=== PATIENT | female | born 1940 | race Caucasian/White ===

== ENCOUNTER 2020-12-14 17:24 | Emergency (ER) | payer MEDICARE, BC ==
[~2020-12-14] VITALS: Ht 172.7 cm; Wt 102.3 kg
[2020-12-14] MEDS ORDERED: CASIRIVIMAB/IMDEVIMAB inject. 10 ML in normal saline 100ml IV soln 100 ML IV ONE (18:25)
[2020-12-14 20:16] VITALS: BP 117/78
== END 2020-12-14 20:00 | disposition home or self-care (01) ==
LOC: ER 17:24
DX: U07.1 COVID-19 (principal); R05 Cough; I48.91 Unspecified atrial fibrillation; I10 Essential (primary) hypertension; J45.909 Unspecified asthma, uncomplicated; Z88.0 Allergy status to penicillin; Z88.1 Allergy status to other antibiotic agents
CPT/HCPCS: 71045; 99283; M0243; Q0244

== ENCOUNTER 2021-04-05 18:38 | Emergency (ER) | payer MEDICARE, BC ==
[~2021-04-05] VITALS: Ht 172.7 cm; Wt 102.3 kg
[~2021-04-05 18:38] MED LIST: ALBU6.7H9 INH; ASPI-1071 PO; CHOL500050 PO; LEVO100T PO; METO-384 PO; ROSU5TAB12 PO; TRIA1TAB3 PO
[2021-04-05 18:56] VITALS: BP 131/84
[2021-04-05] MEDS ORDERED: DEXA6TAB6 PO (19:25)
[2021-04-05] MEDS ORDERED: dexamethasone 4mg tablet PO ONE (19:25)
[2021-04-05] MEDS ORDERED: DEXAMETHASONE 6 MG TABLET PO ONE (19:30)
== END 2021-04-05 20:19 | disposition home or self-care (01) ==
LOC: ER 18:39
DX: R05.9 Cough, unspecified (principal); Z20.822 Contact with and (suspected) exposure to COVID-19; I48.91 Unspecified atrial fibrillation; I10 Essential (primary) hypertension; J45.909 Unspecified asthma, uncomplicated; Z88.0 Allergy status to penicillin; Z88.1 Allergy status to other antibiotic agents; Z79.82 Long term (current) use of aspirin; Z79.899 Other long term (current) drug therapy
CPT/HCPCS: 99283; J8540

== ENCOUNTER 2021-07-26 08:16 | Emergency (ER) | payer MEDICARE, BC ==
[~2021-07-26] VITALS: Ht 172.7 cm; Wt 104.5 kg
[~2021-07-26 08:16] MED LIST changes: +DEXA6TAB6 PO
[2021-07-26 08:26] VITALS: BP 153/87
[2021-07-26 09:38] LABS: CLARITY,URINE CLOUDY (Clear); COLOR,URINE RED (Yellow); GLUCOSE, URINE NEGATIVE (Neg); KETONES,URINE NEGATIVE (Neg); LEUKOCYTE ESTERASE ,URINE NEGATIVE (Neg); NITRITES, URINE NEGATIVE (Neg); OCCULT BLOOD,URINE LARGE (Neg); PROTEIN,URINE TRACE mg/dl (Neg); UROBILINOGEN,URINE 0.2 E.U/dL (0.2-1.0)
[2021-07-26 09:42] LABS: UA COLLECTION TYPE CLN CATCH MIDSTREAM
[2021-07-26 09:44] LABS: BACTERIA,URINE FEW /HPF (Neg); MUCUS STRANDS FEW /LPF (Neg); RBC,URINE TNTC /HPF (0-2); SQUAMOUS EPITHELIAL CELL,UR FEW /LPF (FEW); WBC,URINE 0-4 /HPF (0-4)
--- NOTE | 2021-07-26 10:39 | NUR ---
us at bedside
--- NOTE | 2021-07-26 11:50 | NUR ---
pt states she has no discomfort nor pain before, durring or after urination.
[2021-07-26] MEDS ORDERED: SULF1TAB49 PO (15:49)
[2021-07-26 15:58] LABS: BASOPHILS % (AUTO) 0.1 % (0-1); EOSINOPHILS # (AUTO) 0.1 X10'3 (0-0.9); EOSINOPHILS % (AUTO) 2.1 % (0-6); HEMATOCRIT 45.1 % (35.0-45.0); HEMOGLOBIN 15.5 g/dl (12.0-16.0); LYMPHOCYTES # (AUTO) 1.6 X10'3 (1.1-4.8); LYMPHOCYTES % (AUTO) 28.1 % (21-51); MEAN CORPUSCULAR HEMOGLOBIN 29.2 PG (27.0-31.0); MEAN CORPUSCULAR HGB CONC 34.3 g/dL (33.0-36.5); MEAN PLATELET VOLUME 6.8 FL (7.4-10.4); MONOCYTES # (AUTO) 0.2 X10'3 (0-0.9); MONOCYTES % (AUTO) 3.4 % (2-12); NEUTROPHILS # (AUTO) 3.7 X10'3 (1.8-7.7); NEUTROPHILS % (AUTO) 66.3 % (42-75); PLATELET COUNT 264 X10'3 (140-440); RED BLOOD COUNT 5.31 X10'6 (4.20-5.60); RED CELL DISTRIBUTION WIDTH 14.9 % (11.5-14.5); WHITE BLOOD COUNT 5.6 X10'3 (4.5-11.0)
[2021-07-26 16:11] LABS: ALANINE AMINOTRANSFERASE 18 U/L (12-78); ALBUMIN 3.7 G/DL (3.4-5.0); ALBUMIN/GLOBULIN RATIO 1.1 (1.1-1.5); ALKALINE PHOSPHATASE 73 IU/L (46-116); ANION GAP 8 (8-16); ASPARTATE AMINO TRANSFERASE 16 U/L (10-37); BILIRUBIN,TOTAL 0.6 MG/DL (0.1-1.0); BLOOD UREA NITROGEN 15 MG/DL (7-18); BUN/CREATININE RATIO 14.7 (6.6-38.0); CHLORIDE 105 MMOL/L (99-107); CREATININE 1.02 MG/DL (0.40-0.90); GLUCOSE 142 MG/DL (70-104); POTASSIUM 3.5 MMOL/L (3.5-5.1); SODIUM 141 MMOL/L (135-145); TOTAL CARBON DIOXIDE 28.2 MMOL/L (24-32); eGFR 52 ML/MIN
== END 2021-07-26 16:03 | disposition home or self-care (01) ==
LOC: ER 08:17
DX: R31.0 Gross hematuria (principal); N20.0 Calculus of kidney; N28.89 Other specified disorders of kidney and ureter; I11.9 Hypertensive heart disease without heart failure; J45.909 Unspecified asthma, uncomplicated; Z88.0 Allergy status to penicillin; Z88.1 Allergy status to other antibiotic agents; Z79.899 Other long term (current) drug therapy
CPT/HCPCS: 36415; 74176; 76770; 80053; 81001; 85025; 99284

== ENCOUNTER 2021-12-07 08:38 | Emergency (ER) | payer MEDICARE, BC ==
[~2021-12-07] VITALS: Ht 172.7 cm; Wt 99.0 kg
[~2021-12-07 08:38] MED LIST changes: +ALBU6.7H14 INH; -ALBU6.7H9 INH
[2021-12-07] MEDS ORDERED: normal saline 1000ML IV soln IVB ONE (09:20)
[2021-12-07] MEDS ORDERED: ondansetron/PF 4mg/2ml inj IV ONE (09:20)
[2021-12-07] MEDS ORDERED: ketorolac trometh. 30mg/ml inj. IV ONE (09:20)
[2021-12-07 09:57] LABS: CLARITY,URINE SLIGHTLY CLOUDY (Clear); COLOR,URINE YELLOW (Yellow); GLUCOSE, URINE NEGATIVE (Neg); KETONES,URINE NEGATIVE (Neg); LEUKOCYTE ESTERASE ,URINE NEGATIVE (Neg); NITRITES, URINE NEGATIVE (Neg); OCCULT BLOOD,URINE TRACE-INTACT (Neg); PROTEIN,URINE NEGATIVE (Neg); UROBILINOGEN,URINE 0.2 E.U/dL (0.2-1.0)
[2021-12-07 10:02] LABS: AMORPHOUS PHOSPHATES 1+; BACTERIA,URINE NONE SEEN /HPF (Neg); MUCUS STRANDS FEW /LPF (Neg); RBC,URINE 0-2 /HPF (0-2); SQUAMOUS EPITHELIAL CELL,UR FEW /LPF (FEW); UA COLLECTION TYPE CLN CATCH MIDSTREAM; WBC,URINE NONE SEEN /HPF (0-4)
[2021-12-07 10:11] LABS: BASOPHILS % (AUTO) 0.1 % (0-1); EOSINOPHILS % (AUTO) 0.1 % (0-6); HEMATOCRIT 45.4 % (35.0-45.0); HEMOGLOBIN 15.7 g/dl (12.0-16.0); LYMPHOCYTES # (AUTO) 1.6 X10'3 (1.1-4.8); LYMPHOCYTES % (AUTO) 12.9 % (21-51); MEAN CORPUSCULAR HEMOGLOBIN 29.6 PG (27.0-31.0); MEAN CORPUSCULAR HGB CONC 34.5 g/dL (33.0-36.5); MEAN CORPUSCULAR VOLUME 85.8 FL (78-98); MEAN PLATELET VOLUME 6.6 FL (7.4-10.4); MONOCYTES # (AUTO) 0.7 X10'3 (0-0.9); MONOCYTES % (AUTO) 5.7 % (2-12); NEUTROPHILS # (AUTO) 10.2 X10'3 (1.8-7.7); NEUTROPHILS % (AUTO) 81.2 % (42-75); PLATELET COUNT 274 X10'3 (140-440); RED CELL DISTRIBUTION WIDTH 14.3 % (11.5-14.5); WHITE BLOOD COUNT 12.5 X10'3 (4.5-11.0)
[2021-12-07 10:27] LABS: ALANINE AMINOTRANSFERASE 18 U/L (12-78); ALBUMIN 3.6 G/DL (3.4-5.0); ALBUMIN/GLOBULIN RATIO 1.1 (1.1-1.5); ALKALINE PHOSPHATASE 78 IU/L (46-116); ANION GAP 7 (8-16); ASPARTATE AMINO TRANSFERASE 13 U/L (10-37); BILIRUBIN,TOTAL 0.5 MG/DL (0.1-1.0); BLOOD UREA NITROGEN 24 MG/DL (7-18); BUN/CREATININE RATIO 14.9 (6.6-38.0); CALCIUM 11.1 MG/DL (8.5-10.1); CHLORIDE 101 MMOL/L (99-107); CREATININE 1.61 MG/DL (0.40-0.90); GLUCOSE 130 MG/DL (70-104); POTASSIUM 4.1 MMOL/L (3.5-5.1); SODIUM 135 MMOL/L (135-145); TOTAL CARBON DIOXIDE 27.5 MMOL/L (24-32); eGFR 31 ML/MIN
[2021-12-07] MEDS ORDERED: FLO0.4C PO (11:37)
[2021-12-07] MEDS ORDERED: OXYC-150 PO (11:37)
[2021-12-07 12:03] VITALS: BP 150/84
== END 2021-12-07 12:08 | disposition home or self-care (01) ==
LOC: ER 08:38
DX: N20.0 Calculus of kidney (principal); N13.30 Unspecified hydronephrosis; R10.84 Generalized abdominal pain; R11.2 Nausea with vomiting, unspecified; I12.9 Hypertensive chronic kidney disease with stage 1 through stage 4 chronic kidney disease, or unspecified chronic kidney disease; N18.9 Chronic kidney disease, unspecified; I48.91 Unspecified atrial fibrillation; J45.909 Unspecified asthma, uncomplicated; Z98.890 Other specified postprocedural states; Z88.0 Allergy status to penicillin; Z88.1 Allergy status to other antibiotic agents; Z79.82 Long term (current) use of aspirin; Z79.899 Other long term (current) drug therapy
CPT/HCPCS: 36415; 74176; 80053; 81001; 85025; 96361; 96374; 96375; 99284; J1885; J2405; J7030

== ENCOUNTER 2022-06-02 07:48 | Emergency (ER) | payer MEDICARE, BC ==
[~2022-06-02] VITALS: Ht 172.7 cm; Wt 102.3 kg
[~2022-06-02 07:48] MED LIST changes: +OXYC-150 PO
[2022-06-02 07:56] VITALS: BP 133/81
[2022-06-02] MEDS ORDERED: normal saline 1000ml 1,000 ML IV ONE (08:45)
[2022-06-02] MEDS ORDERED: ondansetron/PF 4mg/2ml inj IM ONE (08:45)
[2022-06-02] MEDS ORDERED: morphine 4 MG/ML inj SYRINge IV ONE (08:45)
[2022-06-02 08:47] LABS: BASOPHILS % (AUTO) 0.1 % (0-1); EOSINOPHILS # (AUTO) 0.1 X10'3 (0-0.9); EOSINOPHILS % (AUTO) 0.6 % (0-6); HEMATOCRIT 45.7 % (35.0-45.0); LYMPHOCYTES # (AUTO) 1.2 X10'3 (1.1-4.8); LYMPHOCYTES % (AUTO) 11.1 % (21-51); MEAN CORPUSCULAR HEMOGLOBIN 28.3 PG (27.0-31.0); MEAN CORPUSCULAR HGB CONC 32.8 g/dL (33.0-36.5); MEAN CORPUSCULAR VOLUME 86.2 FL (78-98); MEAN PLATELET VOLUME 6.9 FL (7.4-10.4); MONOCYTES # (AUTO) 0.6 X10'3 (0-0.9); MONOCYTES % (AUTO) 5.3 % (2-12); NEUTROPHILS # (AUTO) 9.2 X10'3 (1.8-7.7); NEUTROPHILS % (AUTO) 82.9 % (42-75); PLATELET COUNT 293 X10'3 (140-440); RED CELL DISTRIBUTION WIDTH 14.7 % (11.5-14.5); WHITE BLOOD COUNT 11.1 X10'3 (4.5-11.0)
[2022-06-02 09:00] LABS: ALANINE AMINOTRANSFERASE 15 U/L (12-78); ALBUMIN 3.7 G/DL (3.4-5.0); ALBUMIN/GLOBULIN RATIO 1.2 (1.1-1.5); ALKALINE PHOSPHATASE 71 IU/L (46-116); ANION GAP 8 (8-16); ASPARTATE AMINO TRANSFERASE 14 U/L (10-37); BILIRUBIN,TOTAL 0.5 MG/DL (0.1-1.0); BLOOD UREA NITROGEN 26 MG/DL (7-18); BUN/CREATININE RATIO 21.7 (6.6-38.0); CALCIUM 9.6 MG/DL (8.5-10.1); CHLORIDE 105 MMOL/L (99-107); GLUCOSE 146 MG/DL (70-104); LIPASE 115 U/L (73-393); SODIUM 139 MMOL/L (135-145); TOTAL PROTEIN 6.9 G/DL (6.4-8.2); eGFR 43 ML/MIN
[2022-06-02 09:54] LABS: CLARITY,URINE SLIGHTLY CLOUDY (Clear); COLOR,URINE YELLOW (Yellow); GLUCOSE, URINE NEGATIVE (Neg); KETONES,URINE NEGATIVE (Neg); LEUKOCYTE ESTERASE ,URINE NEGATIVE (Neg); NITRITES, URINE NEGATIVE (Neg); OCCULT BLOOD,URINE SMALL (Neg); PH,URINE 6.5 (4.8-8.0); PROTEIN,URINE NEGATIVE (Neg); UROBILINOGEN,URINE 0.2 E.U/dL (0.2-1.0)
[2022-06-02 10:02] LABS: UA COLLECTION TYPE CLN CATCH MIDSTREAM
[2022-06-02] MEDS ORDERED: CefTRIAXone 2gm/D5W 50ml BAG 50 ML IV ONE (10:10)
[2022-06-02] MEDS ORDERED: ketorolac trometh. 30mg/ml inj. IV ONE (10:15)
[2022-06-02 10:25] LABS: WBC,URINE 0-4 /HPF (0-4)
[2022-06-02 10:26] LABS: SQUAMOUS EPITHELIAL CELL,UR FEW /LPF (FEW)
[2022-06-02 10:27] LABS: BACTERIA,URINE NONE SEEN /HPF (Neg)
[2022-06-02] MEDS ORDERED: CEPH500C2 PO (10:48)
[2022-06-02] MEDS ORDERED: TRAM1TAB7 PO (10:48)
[2022-06-02] MEDS ORDERED: ONDA8TAB13 PO (10:48)
== END 2022-06-02 11:11 | disposition home or self-care (01) ==
LOC: ER 07:49
DX: N20.1 Calculus of ureter (principal); N12 Tubulo-interstitial nephritis, not specified as acute or chronic; J45.909 Unspecified asthma, uncomplicated; I10 Essential (primary) hypertension; Z87.442 Personal history of urinary calculi; I11.9 Hypertensive heart disease without heart failure; Z88.0 Allergy status to penicillin; Z88.1 Allergy status to other antibiotic agents; Z79.82 Long term (current) use of aspirin; Z79.899 Other long term (current) drug therapy
CPT/HCPCS: 36415; 74176; 80053; 81001; 83690; 85025; 96361; 96365; 96372; 96375; 99285; J0696; J1885; J2270; J2405; J7030

== ENCOUNTER 2023-02-22 09:20 | Inpatient (IN) | payer MEDICARE, BC ==
[~2023-02-22] VITALS: Ht 172.7 cm; Wt 98.8 kg
[2023-02-22] VITALS (17 sets, daily range): BP systolic 107–150; BP diastolic 61–88; PULSE 63–95; RESP 7–19; TEMP 97.8–99.5; O2SAT 93–100
[~2023-02-22 09:20] MED LIST changes: +ONDA8TAB13 PO
[2023-02-22] MEDS ORDERED: morphine 2 MG/ML inj. syringe IV PRN ×2 (09:40→17:20)
[2023-02-22] MEDS ORDERED: ondansetron/PF 4mg/2ml inj IV ONE (09:40)
[2023-02-22] MEDS ORDERED: normal saline 1000ML IV soln IVB ONE (09:40)
[2023-02-22 10:30] LABS: BILIRUBIN,URINE NEGATIVE (Neg); CLARITY,URINE SLIGHTLY CLOUDY (Clear); COLOR,URINE YELLOW (Yellow); GLUCOSE, URINE NEGATIVE (Neg); KETONES,URINE NEGATIVE (Neg); LEUKOCYTE ESTERASE ,URINE NEGATIVE (Neg); NITRITES, URINE NEGATIVE (Neg); OCCULT BLOOD,URINE MODERATE (Neg); PROTEIN,URINE NEGATIVE (Neg); UROBILINOGEN,URINE 0.2 E.U/dL (0.2-1.0)
[2023-02-22 10:35] LABS: UA COLLECTION TYPE CLN CATCH MIDSTREAM
[2023-02-22 10:37] LABS: BACTERIA,URINE FEW /HPF (Neg); FINE GRANULAR CAST 0-3 /LPF (NEGATIVE); HYALINE CASTS 0-3 /LPF (NEGATIVE); MUCUS STRANDS FEW /LPF (Neg); SQUAMOUS EPITHELIAL CELL,UR FEW /LPF (FEW); TRANSITIONAL EPI CELLS,URINE FEW /HPF; WBC,URINE 0-4 /HPF (0-4)
[2023-02-22 11:00] LABS: BASOPHILS % (AUTO) 0.2 % (0-1); EOSINOPHILS # (AUTO) 0.1 X10'3 (0-0.9); EOSINOPHILS % (AUTO) 1.6 % (0-6); HEMATOCRIT 43.5 % (35.0-45.0); HEMOGLOBIN 14.7 g/dl (12.0-16.0); LYMPHOCYTES # (AUTO) 2.4 X10'3 (1.1-4.8); LYMPHOCYTES % (AUTO) 26.6 % (21-51); MEAN CORPUSCULAR HEMOGLOBIN 29.1 PG (27.0-31.0); MEAN CORPUSCULAR HGB CONC 33.7 g/dL (33.0-36.5); MEAN CORPUSCULAR VOLUME 86.3 FL (78-98); MEAN PLATELET VOLUME 7.3 FL (7.4-10.4); MONOCYTES # (AUTO) 0.5 X10'3 (0-0.9); NEUTROPHILS % (AUTO) 66.6 % (42-75); PLATELET COUNT 317 X10'3 (140-440); RED BLOOD COUNT 5.05 X10'6 (4.20-5.60); RED CELL DISTRIBUTION WIDTH 14.7 % (11.5-14.5)
[2023-02-22 11:22] LABS: ALANINE AMINOTRANSFERASE 17 U/L (12-78); ALBUMIN 3.2 G/DL (3.4-5.0); ALBUMIN/GLOBULIN RATIO 0.8 (1.1-1.5); ALKALINE PHOSPHATASE 69 IU/L (46-116); ANION GAP 6 (8-16); ASPARTATE AMINO TRANSFERASE 14 U/L (10-37); BILIRUBIN,TOTAL 0.7 MG/DL (0.1-1.0); BLOOD UREA NITROGEN 17 MG/DL (7-18); C-REACTIVE PROTEIN 8.13 MG/DL (0.0-0.5); CALCIUM 9.5 MG/DL (8.5-10.1); CHLORIDE 103 MMOL/L (99-107); CREATININE 1.06 MG/DL (0.40-0.90); GLUCOSE 115 MG/DL (70-104); LIPASE 35 U/L (16-77); POTASSIUM 3.7 MMOL/L (3.5-5.1); SODIUM 138 MMOL/L (135-145); TOTAL CARBON DIOXIDE 28.9 MMOL/L (24-32); TOTAL PROTEIN 7.4 G/DL (6.4-8.2); eCRCL 42 ML/MIN; eGFR 50 ML/MIN
[2023-02-22] MEDS ORDERED: MEROPENEM 1GM/NS 100ML IVPB 100 ML IV ONE (11:55)
[2023-02-22] MEDS ORDERED: levoFLOXACIN-Levaquin 750MG/D5 150 ML IV STA (12:31)
[2023-02-22] MEDS ORDERED: potassium Cl 40MEQ/1/2NS 520ml 520 ML IV PRN (12:35)
[2023-02-22] MEDS ORDERED: potassium Cl 20 mEq SR tablet PO PRN ×2 (12:35)
[2023-02-22] MEDS ORDERED: magnesium 2GM in 50ml NS 50 ML IV PRN (12:35)
[2023-02-22] MEDS ORDERED: magnesium 4gm in 100ml NS 100 ML IV PRN (12:35)
[2023-02-22] MEDS ORDERED: ondansetron/PF 4mg/2ml inj IV PRN ×2 (12:35→17:20)
[2023-02-22] MEDS: normal saline 1000ml 1,000 ML IV SCH (13:36)
[2023-02-22 14:55] LABS: APTT 33 SECONDS (22-32)
[2023-02-22] MEDS ORDERED: INDOCYANINE GREEN 25 MG/10 ML VIAL IV ONE (15:35)
[2023-02-22] MEDS ORDERED: hydrALAZINE 20mg/ml inj. IV PRN (15:55)
[2023-02-22] MEDS: metroNIDAZOLE-Flagyl 750mg/NS 150 ML IV SCH (16:37)
[2023-02-22] MEDS ORDERED: BUPIVAcaine 2.5mg/ml inj 50ml vial (contains preservative) ONE (16:55)
[2023-02-22] MEDS ORDERED: meperidine/PF 25mg/ml syringe IV PRN ×3 (17:20)
[2023-02-22] MEDS ORDERED: proCHLORperazine 10 MG/2 ml inj IV PRN (17:20)
[2023-02-22] MEDS ORDERED: ringers solution, lacted 1,000 ML IV SCH (17:20)
[2023-02-22] MEDS ORDERED: morphine 4 MG/ML inj SYRINge IV PRN (17:20)
[2023-02-22] MEDS ORDERED: LIDOcaine 2% (20mg/ml) 5ml vial ONE (17:34)
[2023-02-22] MEDS ORDERED: sevoflurane 250ml liquid IH ONE (17:34)
[2023-02-22] MEDS ORDERED: metoprolol tartrate 1mg/ml inj IV ONE (17:34)
[2023-02-22] MEDS ORDERED: propofol inj 20 ML IV ONE (17:41)
[2023-02-22] MEDS ORDERED: fentaNYL/PF 50MCG/1 ML 2ML syringe ONE (17:41)
[2023-02-22] MEDS ORDERED: rocuronium 10mg/ml inj IV ONE (17:52)
[2023-02-22] MEDS ORDERED: dexamethasone sod phosphate 4mg/ml inj. ONE (17:52)
[2023-02-22] MEDS ORDERED: ceFOXitin 1000 MG inj ONE ×2 (18:01)
[2023-02-22] MEDS ORDERED: BUPIVAcaine 0.25% w/Epi /PF 30ml vial IJ ONE (18:20)
[2023-02-22] MEDS ORDERED: BUPIVAcaine 2.5mg/ml inj 50ml vial (contains preservative) SQ ONE (18:20)
[2023-02-22] MEDS ORDERED: acetaminophen 1,000mg/100ml IV 100 ML IV ONE (18:55)
[2023-02-22] MEDS ORDERED: ondansetron/PF 4mg/2ml inj ONE (18:57)
[2023-02-22] MEDS ORDERED: sugammadex 200mg/2ml injection IV ONE (18:59)
[2023-02-22] MEDS ORDERED: naloxone 0.4 mg/ml inj IV PRN (19:25)
[2023-02-22] MEDS ORDERED: metoprolol tartrate 50mg tablet PO ONE (19:25)
[2023-02-22] MEDS: K and/or MAG REPLACEMENT MC SCH (20:00)
[2023-02-22] MEDS: docusate sod 100mg capsule PO SCH (21:40)
[2023-02-22] MEDS: enoxaparin 40mg/0.4ml syringe SQ SCH (21:51)
[2023-02-22] MEDS: HYDROcodone/acetaminophen 5mg/325mg tablet PO PRN (22:17)
[2023-02-23] VITALS: BP 153/73; PULSE 69; O2SAT 93
[2023-02-23] MEDS: metroNIDAZOLE-Flagyl 750mg/NS 150 ML IV SCH ×4 (01:39→23:59)
[2023-02-23] MEDS: normal saline 1000ml 1,000 ML IV SCH ×3 (01:41→16:10)
[2023-02-23 02:00] VITALS: BP 139/67; PULSE 73; RESP 15; TEMP 97.8; O2SAT 95
[2023-02-23] MEDS: HYDROcodone/acetaminophen 5mg/325mg tablet PO PRN ×3 (03:47→17:48)
[2023-02-23 06:00] VITALS: BP 140/69; PULSE 65; RESP 15; TEMP 97.6; O2SAT 93
[2023-02-23 06:05] LABS: BASOPHILS % (AUTO) 0.1 % (0-1); EOSINOPHILS % (AUTO) 0 % (0-6); HEMATOCRIT 39.9 % (35.0-45.0); HEMOGLOBIN 13.4 g/dl (12.0-16.0); LYMPHOCYTES # (AUTO) 1.1 X10'3 (1.1-4.8); LYMPHOCYTES % (AUTO) 12.5 % (21-51); MEAN CORPUSCULAR HEMOGLOBIN 28.8 PG (27.0-31.0); MEAN CORPUSCULAR HGB CONC 33.5 g/dL (33.0-36.5); MEAN PLATELET VOLUME 7.5 FL (7.4-10.4); MONOCYTES # (AUTO) 0.2 X10'3 (0-0.9); MONOCYTES % (AUTO) 2.5 % (2-12); NEUTROPHILS # (AUTO) 7.3 X10'3 (1.8-7.7); NEUTROPHILS % (AUTO) 84.9 % (42-75); PLATELET COUNT 290 X10'3 (140-440); RED BLOOD COUNT 4.64 X10'6 (4.20-5.60); RED CELL DISTRIBUTION WIDTH 14.5 % (11.5-14.5); WHITE BLOOD COUNT 8.6 X10'3 (4.5-11.0)
[2023-02-23 06:16] LABS: ALANINE AMINOTRANSFERASE 25 U/L (12-78); ALBUMIN 2.7 G/DL (3.4-5.0); ALBUMIN/GLOBULIN RATIO 0.7 (1.1-1.5); ALKALINE PHOSPHATASE 66 IU/L (46-116); ANION GAP 7 (8-16); ASPARTATE AMINO TRANSFERASE 29 U/L (10-37); BILIRUBIN,TOTAL 0.5 MG/DL (0.1-1.0); BLOOD UREA NITROGEN 14 MG/DL (7-18); BUN/CREATININE RATIO 13.7 (10.0-20.0); CALCIUM 8.4 MG/DL (8.5-10.1); CHLORIDE 104 MMOL/L (99-107); CREATININE 1.02 MG/DL (0.40-0.90); GLUCOSE 159 MG/DL (70-104); MAGNESIUM 1.7 MG/DL (1.5-2.4); POTASSIUM 3.9 MMOL/L (3.5-5.1); SODIUM 139 MMOL/L (135-145); TOTAL CARBON DIOXIDE 28.4 MMOL/L (24-32); TOTAL PROTEIN 6.4 G/DL (6.4-8.2); eCRCL 44 ML/MIN; eGFR 52 ML/MIN
[2023-02-23] MEDS: K and/or MAG REPLACEMENT MC SCH ×2 (07:23→20:00)
[2023-02-23] MEDS: docusate sod 100mg capsule PO SCH ×2 (07:32→19:58)
[2023-02-23] MEDS: acetaminophen 325mg tablet PO PRN (07:32)
[2023-02-23] MEDS ORDERED: levoFLOXACIN-Levaquin 750MG/D5 150 ML IV SCH (08:00)
[2023-02-23 10:00] VITALS: BP 121/75; PULSE 77; RESP 14; TEMP 96.9; O2SAT 98
[2023-02-23 18:00] VITALS: BP 153/82; PULSE 77; RESP 18; TEMP 97.3; O2SAT 97
[2023-02-23] MEDS ORDERED: oxyCODONE/APAP 10/325mg tablet PO PRN (18:05)
[2023-02-23] MEDS ORDERED: albuterol 2.5 MG/3 ML nebule NEB PRN (18:05)
[2023-02-23] MEDS: enoxaparin 40mg/0.4ml syringe SQ SCH (19:58)
[2023-02-23] MEDS ORDERED: metoprolol succinate 25mg (24-HOUR) SR. Tablet PO SCH (21:00)
[2023-02-23] MEDS: ondansetron 4mg rapidly disintigrating tab PO SCH (21:37)
[2023-02-23 22:00] VITALS: BP 160/84; PULSE 85; RESP 15; TEMP 98.1; O2SAT 96
[2023-02-24] MEDS: ondansetron 4mg rapidly disintigrating tab PO SCH ×3 (02:00→14:00)
[2023-02-24] MEDS: normal saline 1000ml 1,000 ML IV SCH (04:35)
[2023-02-24 06:00] VITALS: BP 149/74; PULSE 76; RESP 15; TEMP 97.7; O2SAT 96
[2023-02-24 06:36] LABS: BASOPHILS % (AUTO) 0.2 % (0-1); EOSINOPHILS % (AUTO) 0.5 % (0-6); HEMATOCRIT 38.8 % (35.0-45.0); LYMPHOCYTES # (AUTO) 1.6 X10'3 (1.1-4.8); LYMPHOCYTES % (AUTO) 19.4 % (21-51); MEAN CORPUSCULAR HGB CONC 33.5 g/dL (33.0-36.5); MEAN CORPUSCULAR VOLUME 86.6 FL (78-98); MEAN PLATELET VOLUME 6.9 FL (7.4-10.4); MONOCYTES # (AUTO) 0.6 X10'3 (0-0.9); MONOCYTES % (AUTO) 7.3 % (2-12); NEUTROPHILS # (AUTO) 6.1 X10'3 (1.8-7.7); NEUTROPHILS % (AUTO) 72.6 % (42-75); PLATELET COUNT 278 X10'3 (140-440); RED BLOOD COUNT 4.48 X10'6 (4.20-5.60); RED CELL DISTRIBUTION WIDTH 14.4 % (11.5-14.5); WHITE BLOOD COUNT 8.5 X10'3 (4.5-11.0)
[2023-02-24 06:55] LABS: ALANINE AMINOTRANSFERASE 22 U/L (12-78); ALBUMIN 2.6 G/DL (3.4-5.0); ALBUMIN/GLOBULIN RATIO 0.8 (1.1-1.5); ALKALINE PHOSPHATASE 59 IU/L (46-116); ANION GAP 8 (8-16); ASPARTATE AMINO TRANSFERASE 21 U/L (10-37); BILIRUBIN,TOTAL 0.3 MG/DL (0.1-1.0); BLOOD UREA NITROGEN 10 MG/DL (7-18); BUN/CREATININE RATIO 10.8 (10.0-20.0); CALCIUM 7.9 MG/DL (8.5-10.1); CHLORIDE 108 MMOL/L (99-107); CREATININE 0.93 MG/DL (0.40-0.90); GLUCOSE 107 MG/DL (70-104); MAGNESIUM 1.7 MG/DL (1.5-2.4); POTASSIUM 3.6 MMOL/L (3.5-5.1); SODIUM 143 MMOL/L (135-145); THYROID STIMULATING HORMONE 6.09 ulU/ml (0.34-4.50); TOTAL CARBON DIOXIDE 26.9 MMOL/L (24-32); eCRCL 48 ML/MIN; eGFR 58 ML/MIN
[2023-02-24] MEDS ORDERED: levoTHYROXINE 100mcg tablet PO SCH (07:00)
[2023-02-24] MEDS: docusate sod 100mg capsule PO SCH (07:20)
[2023-02-24] MEDS: metroNIDAZOLE-Flagyl 750mg/NS 150 ML IV SCH (07:24)
[2023-02-24] MEDS ORDERED: aspirin 81mg, enteric-coated 1 TAB TABLET.DR PO SCH (08:00)
[2023-02-24] MEDS: K and/or MAG REPLACEMENT MC SCH (08:00)
[2023-02-24] MEDS ORDERED: cholecalciferol (vitamin D3) 1,000 unit (25mcg) tablet PO SCH (08:00)
[2023-02-24] MEDS ORDERED: triamterene/HCTZ 37.5/25mg tablet PO SCH (08:00)
[2023-02-24] MEDS ORDERED: DEXAMETHASONE 6 MG TABLET PO SCH (08:00)
[2023-02-24] MEDS ORDERED: ROSUVASTATIN CALCIUM 5 MG TABLET PO SCH (08:00)
[2023-02-24] MEDS: acetaminophen 325mg tablet PO PRN (09:16)
[2023-02-24 10:00] VITALS: BP 146/79; PULSE 77; RESP 17; TEMP 97.5; O2SAT 95
[2023-02-24] MEDS: HYDROcodone/acetaminophen 5mg/325mg tablet PO PRN (11:21)
[2023-02-24] MEDS ORDERED: furosemide 40mg/4ml inj IV ONE (11:25)
[2023-02-25] MEDS ORDERED: levoFLOXACIN-Levaquin 750MG/D5 150 ML IV SCH (08:00)
== END 2023-02-24 14:40 | disposition home or self-care (01) | DRG 418 ==
LOC: ER 09:20 → ED HOLD 12:43 → EDBEDREQ 14:37 → ORTHO 4S 15:15
PROVIDERS: ADMIT Family Medicine; ATTEND Family Medicine
PROC: 0FN44ZZ Release Gallbladder, Percutaneous Endoscopic Approach (ICD-10-PCS; 2023-02-22)
PROC: 8E0W4CZ Robotic Assisted Procedure of Trunk Region, Percutaneous Endoscopic Approach (ICD-10-PCS; 2023-02-22)
PROC: 0FT44ZZ Resection of Gallbladder, Percutaneous Endoscopic Approach (ICD-10-PCS; principal; 2023-02-22 17:34)
DX: K80.12 Calculus of gallbladder with acute and chronic cholecystitis without obstruction (principal); N17.9 Acute kidney failure, unspecified; E03.9 Hypothyroidism, unspecified; E78.5 Hyperlipidemia, unspecified; I10 Essential (primary) hypertension; J45.909 Unspecified asthma, uncomplicated; K66.0 Peritoneal adhesions (postprocedural) (postinfection); I48.0 Paroxysmal atrial fibrillation; Z66 Do not resuscitate; Z82.49 Family history of ischemic heart disease and other diseases of the circulatory system; Z88.0 Allergy status to penicillin; Z79.899 Other long term (current) drug therapy; Z88.1 Allergy status to other antibiotic agents; Z80.3 Family history of malignant neoplasm of breast; Z80.42 Family history of malignant neoplasm of prostate; Z82.0 Family history of epilepsy and other diseases of the nervous system; Z87.442 Personal history of urinary calculi; Z90.710 Acquired absence of both cervix and uterus; E86.0 Dehydration
CPT/HCPCS: 36415; 71045; 74176; 80053; 81001; 83605; 83690; 83735; 84145; 84443; 85025; 85610; 85730; 86140; 86885; 86900; 86901; 87040; 87081; 88304; 93005; 99285; A4215; A4618; A6212; A6449; A7000; G0378; J0131; J0694; J1100; J1650; J1940; J1956; J2175; J2405; J2704; J3010; J3490; J7030; J7120; S0020

== ENCOUNTER 2023-10-30 20:11 | Emergency (ER) | payer MEDICARE, BC ==
[~2023-10-30] VITALS: Ht 172.7 cm; Wt 105.0 kg
[~2023-10-30 20:11] MED LIST changes: +ONDA-245 PO; -ONDA8TAB13 PO; -ROSU5TAB12 PO; +ROSU5TAB43 PO
[2023-10-30 20:45] LABS: BASOPHILS % (AUTO) 0.1 % (0-1); EOSINOPHILS # (AUTO) 0.1 X10'3 (0-0.9); HEMATOCRIT 46.5 % (35.0-45.0); HEMOGLOBIN 15.8 g/dl (12.0-16.0); LYMPHOCYTES # (AUTO) 2.5 X10'3 (1.1-4.8); LYMPHOCYTES % (AUTO) 23.6 % (21-51); MEAN CORPUSCULAR HEMOGLOBIN 29.2 PG (27.0-31.0); MEAN CORPUSCULAR VOLUME 85.8 FL (78-98); MEAN PLATELET VOLUME 6.9 FL (7.4-10.4); MONOCYTES # (AUTO) 0.7 X10'3 (0-0.9); MONOCYTES % (AUTO) 6.8 % (2-12); NEUTROPHILS # (AUTO) 7.3 X10'3 (1.8-7.7); NEUTROPHILS % (AUTO) 68.5 % (42-75); PLATELET COUNT 295 X10'3 (140-440); RED BLOOD COUNT 5.42 X10'6 (4.20-5.60); RED CELL DISTRIBUTION WIDTH 15.7 % (11.5-14.5); WHITE BLOOD COUNT 10.7 X10'3 (4.5-11.0)
[2023-10-30 21:01] LABS: APTT 28 SECONDS (22-32); PROTHROMBIN TIME 10.9 SECONDS (9.0-12.0)
[2023-10-30 21:04] LABS: ALANINE AMINOTRANSFERASE 14 U/L (12-78); ALBUMIN 3.6 G/DL (3.4-5.0); ALKALINE PHOSPHATASE 75 IU/L (46-116); ANION GAP 6 (8-16); ASPARTATE AMINO TRANSFERASE 11 U/L (10-37); BILIRUBIN,TOTAL 0.4 MG/DL (0.1-1.0); BLOOD UREA NITROGEN 22 MG/DL (7-18); BUN/CREATININE RATIO 15.5 (10.0-20.0); CALCIUM 9.5 MG/DL (8.5-10.1); CHLORIDE 104 MMOL/L (99-107); CREATININE 1.42 MG/DL (0.40-0.90); GLUCOSE 143 MG/DL (70-104); LIPASE 43 U/L (16-77); POTASSIUM 3.7 MMOL/L (3.5-5.1); SODIUM 137 MMOL/L (135-145); TOTAL CARBON DIOXIDE 26.7 MMOL/L (24-32); TOTAL PROTEIN 7.1 G/DL (6.4-8.2); eCRCL 31 ML/MIN; eGFR 36 ML/MIN
[2023-10-30] MEDS ORDERED: ONDA-243 PO (21:32)
[2023-10-30] MEDS ORDERED: OXYC-150 PO (21:32)
[2023-10-30] MEDS: oxyCODONE/APAP 10/325mg tablet PO ONE (23:04)
[2023-10-30] MEDS: ondansetron 4mg rapidly disintigrating tab PO ONE (23:05)
[2023-10-30 23:12] VITALS: BP 169/87; PULSE 97; RESP 16; TEMP 98.3; O2SAT 98
== END 2023-10-30 23:14 | disposition home or self-care (01) ==
LOC: ER 20:12
DX: N20.0 Calculus of kidney (principal); I48.91 Unspecified atrial fibrillation; I10 Essential (primary) hypertension; J45.909 Unspecified asthma, uncomplicated; Z88.0 Allergy status to penicillin; Z91.041 Radiographic dye allergy status; Z79.82 Long term (current) use of aspirin; Z79.899 Other long term (current) drug therapy; Z79.2 Long term (current) use of antibiotics
CPT/HCPCS: 36415; 74176; 80053; 83690; 85025; 85610; 85730; 99284

== ENCOUNTER 2024-01-24 05:13 | Emergency (ER) | payer MEDICARE, BC ==
[~2024-01-24] VITALS: Ht 172.7 cm; Wt 111.3 kg
[~2024-01-24 05:13] MED LIST changes: +ONDA-243 PO
[2024-01-24 05:18] VITALS: TEMP 97.5
[2024-01-24 06:58] LABS: BILIRUBIN,URINE NEGATIVE (Neg); CLARITY,URINE CLEAR (Clear); COLOR,URINE YELLOW (Yellow); GLUCOSE, URINE NEGATIVE (Neg); KETONES,URINE NEGATIVE (Neg); LEUKOCYTE ESTERASE ,URINE NEGATIVE (Neg); NITRITES, URINE NEGATIVE (Neg); OCCULT BLOOD,URINE TRACE-INTACT (Neg); PROTEIN,URINE NEGATIVE (Neg); UROBILINOGEN,URINE 0.2 E.U/dL (0.2-1.0)
[2024-01-24 07:02] LABS: UA COLLECTION TYPE CLN CATCH MIDSTREAM
[2024-01-24 07:12] LABS: MUCUS STRANDS FEW /LPF (Neg); SQUAMOUS EPITHELIAL CELL,UR FEW /LPF (FEW)
[2024-01-24 07:14] LABS: BACTERIA,URINE FEW /HPF (Neg); RBC,URINE 0-2 /HPF (0-2); WBC,URINE 0-4 /HPF (0-4)
[2024-01-24 08:19] LABS: BASOPHILS % (AUTO) 0.4 % (0-1); EOSINOPHILS # (AUTO) 0.1 X10'3 (0-0.9); EOSINOPHILS % (AUTO) 1.3 % (0-6); HEMATOCRIT 43.6 % (35.0-45.0); HEMOGLOBIN 14.7 g/dl (12.0-16.0); LYMPHOCYTES % (AUTO) 27.8 % (21-51); MEAN CORPUSCULAR HEMOGLOBIN 28.9 PG (27.0-31.0); MEAN CORPUSCULAR HGB CONC 33.7 g/dL (33.0-36.5); MEAN CORPUSCULAR VOLUME 85.7 FL (78-98); MONOCYTES # (AUTO) 0.6 X10'3 (0-0.9); MONOCYTES % (AUTO) 8.1 % (2-12); NEUTROPHILS # (AUTO) 4.4 X10'3 (1.8-7.7); NEUTROPHILS % (AUTO) 62.4 % (42-75); PLATELET COUNT 272 X10'3 (140-440); RED BLOOD COUNT 5.09 X10'6 (4.20-5.60); RED CELL DISTRIBUTION WIDTH 14.9 % (11.5-14.5)
[2024-01-24 08:31] LABS: ALANINE AMINOTRANSFERASE 16 U/L (12-78); ALBUMIN 3.5 G/DL (3.4-5.0); ALBUMIN/GLOBULIN RATIO 1.1 (1.1-1.5); ALKALINE PHOSPHATASE 62 IU/L (46-116); ANION GAP 7 (8-16); ASPARTATE AMINO TRANSFERASE 15 U/L (10-37); BILIRUBIN,TOTAL 0.5 MG/DL (0.1-1.0); BLOOD UREA NITROGEN 20 MG/DL (7-18); BUN/CREATININE RATIO 17.7 (10.0-20.0); CHLORIDE 103 MMOL/L (99-107); CREATININE 1.13 MG/DL (0.40-0.90); GLUCOSE 114 MG/DL (70-104); POTASSIUM 3.8 MMOL/L (3.5-5.1); SODIUM 137 MMOL/L (135-145); TOTAL PROTEIN 6.6 G/DL (6.4-8.2); eCRCL 39 ML/MIN; eGFR 46 ML/MIN
[2024-01-24 10:21] VITALS: BP 149/86; PULSE 66; RESP 16; O2SAT 97
== END 2024-01-24 10:23 | disposition home or self-care (01) ==
LOC: ER 05:14
DX: R10.84 Generalized abdominal pain (principal); I48.91 Unspecified atrial fibrillation; I10 Essential (primary) hypertension; J45.909 Unspecified asthma, uncomplicated; Z87.442 Personal history of urinary calculi; Z88.0 Allergy status to penicillin; Z88.1 Allergy status to other antibiotic agents; Z79.82 Long term (current) use of aspirin; Z79.899 Other long term (current) drug therapy
CPT/HCPCS: 36415; 74176; 80053; 81001; 85025; 93976; 99284; J7030

== ENCOUNTER 2024-05-01 20:28 | Emergency (ER) | payer MEDICARE, BC ==
[~2024-05-01] VITALS: Ht 170.2 cm; Wt 109.1 kg
[~2024-05-01 20:28] MED LIST changes: -ROSU5TAB43 PO; +ROSU5TAB51 PO
[2024-05-01] MEDS: ketorolac trometh 15mg/ml vial 15 MG/ML ML IV ONE (23:01)
[2024-05-01] MEDS: acetaminophen 1,000mg/100ml IV 100 ML IV ONE (23:02)
[2024-05-01] MEDS: normal saline 1000ml 1,000 ML IV ONE (23:02)
[2024-05-01 23:05] VITALS: PULSE 71
[2024-05-01 23:34] LABS: BASOPHILS % (AUTO) 0.2 % (0-1); EOSINOPHILS # (AUTO) 0.1 X10'3 (0-0.9); EOSINOPHILS % (AUTO) 0.6 % (0-6); HEMATOCRIT 46.5 % (35.0-45.0); HEMOGLOBIN 15.7 g/dl (12.0-16.0); LYMPHOCYTES # (AUTO) 1.6 X10'3 (1.1-4.8); LYMPHOCYTES % (AUTO) 12.3 % (21-51); MEAN CORPUSCULAR HEMOGLOBIN 29.4 PG (27.0-31.0); MEAN CORPUSCULAR HGB CONC 33.8 g/dL (33.0-36.5); MEAN CORPUSCULAR VOLUME 86.9 FL (78-98); MEAN PLATELET VOLUME 7.1 FL (7.4-10.4); MONOCYTES # (AUTO) 0.9 X10'3 (0-0.9); MONOCYTES % (AUTO) 6.6 % (2-12); NEUTROPHILS # (AUTO) 10.5 X10'3 (1.8-7.7); NEUTROPHILS % (AUTO) 80.3 % (42-75); PLATELET COUNT 297 X10'3 (140-440); RED BLOOD COUNT 5.35 X10'6 (4.20-5.60)
[2024-05-01 23:50] LABS: ALBUMIN 3.7 G/DL (3.4-5.0); ANION GAP 10 (8-16); BLOOD UREA NITROGEN 26 MG/DL (7-18); BUN/CREATININE RATIO 18.7 (10.0-20.0); CHLORIDE 102 MMOL/L (99-107); CREATININE 1.39 MG/DL (0.40-0.90); GLUCOSE 147 MG/DL (70-104); LIPASE 47 U/L (16-77); POTASSIUM 3.9 MMOL/L (3.5-5.1); SODIUM 140 MMOL/L (135-145); TOTAL CARBON DIOXIDE 28.2 MMOL/L (24-32); eCRCL 30 ML/MIN; eGFR 36 ML/MIN
[2024-05-01 23:52] LABS: BILIRUBIN,URINE NEGATIVE (Neg); CLARITY,URINE CLEAR (Clear); COLOR,URINE YELLOW (Yellow); GLUCOSE, URINE NEGATIVE (Neg); KETONES,URINE NEGATIVE (Neg); LEUKOCYTE ESTERASE ,URINE NEGATIVE (Neg); NITRITES, URINE NEGATIVE (Neg); OCCULT BLOOD,URINE SMALL (Neg); PROTEIN,URINE NEGATIVE (Neg); UROBILINOGEN,URINE 0.2 E.U/dL (0.2-1.0)
[2024-05-01 23:57] LABS: UA COLLECTION TYPE CLN CATCH MIDSTREAM
[2024-05-01 23:58] LABS: BACTERIA,URINE FEW /HPF (Neg); SQUAMOUS EPITHELIAL CELL,UR FEW /LPF (FEW); WBC,URINE 0-4 /HPF (0-4)
[2024-05-02] MEDS ORDERED: KETO10TA2 PO (00:28)
[2024-05-02] MEDS ORDERED: FLO0.4C PO (00:29)
[2024-05-02 00:44] VITALS: BP 157/95; RESP 16; TEMP 98.3; O2SAT 100
== END 2024-05-02 00:46 | disposition home or self-care (01) ==
LOC: ER 20:29
DX: N20.0 Calculus of kidney (principal); I48.91 Unspecified atrial fibrillation; I10 Essential (primary) hypertension; J45.909 Unspecified asthma, uncomplicated; Z88.0 Allergy status to penicillin; Z88.1 Allergy status to other antibiotic agents; Z79.82 Long term (current) use of aspirin; Z79.899 Other long term (current) drug therapy
CPT/HCPCS: 36415; 80048; 81001; 83690; 84145; 85025; 93005; 96365; 96375; 99284; J0131; J1885; J7030

== ENCOUNTER 2024-06-02 19:44 | Emergency (ER) | payer MEDICARE, BC ==
[~2024-06-02] VITALS: Ht 170.2 cm; Wt 109.1 kg
[~2024-06-02 19:44] MED LIST changes: +FLO0.4C PO; +KETO10TA2 PO
[2024-06-02 19:51] VITALS: TEMP 97.7
[2024-06-02 20:40] LABS: BASOPHILS % (AUTO) 0.2 % (0-1); EOSINOPHILS # (AUTO) 0.1 X10'3 (0-0.9); EOSINOPHILS % (AUTO) 1.4 % (0-6); HEMATOCRIT 45.4 % (35.0-45.0); HEMOGLOBIN 15.6 g/dl (12.0-16.0); LYMPHOCYTES # (AUTO) 2.2 X10'3 (1.1-4.8); LYMPHOCYTES % (AUTO) 24.1 % (21-51); MEAN CORPUSCULAR HEMOGLOBIN 29.4 PG (27.0-31.0); MEAN CORPUSCULAR HGB CONC 34.4 g/dL (33.0-36.5); MEAN CORPUSCULAR VOLUME 85.5 FL (78-98); MEAN PLATELET VOLUME 6.7 FL (7.4-10.4); MONOCYTES # (AUTO) 0.5 X10'3 (0-0.9); MONOCYTES % (AUTO) 5.9 % (2-12); NEUTROPHILS # (AUTO) 6.2 X10'3 (1.8-7.7); NEUTROPHILS % (AUTO) 68.4 % (42-75); PLATELET COUNT 292 X10'3 (140-440); RED BLOOD COUNT 5.31 X10'6 (4.20-5.60); RED CELL DISTRIBUTION WIDTH 14.7 % (11.5-14.5)
[2024-06-02 20:58] LABS: ALANINE AMINOTRANSFERASE 18 U/L (12-78); ALBUMIN 3.5 G/DL (3.4-5.0); ALBUMIN/GLOBULIN RATIO 0.9 (1.1-1.5); ALKALINE PHOSPHATASE 86 IU/L (46-116); ANION GAP 8 (8-16); ASPARTATE AMINO TRANSFERASE 15 U/L (10-37); BILIRUBIN,TOTAL 0.4 MG/DL (0.1-1.0); BLOOD UREA NITROGEN 24 MG/DL (7-18); CALCIUM 9.4 MG/DL (8.5-10.1); CHLORIDE 105 MMOL/L (99-107); CREATININE 1.09 MG/DL (0.40-0.90); GLUCOSE 160 MG/DL (70-104); LIPASE 44 U/L (16-77); POTASSIUM 3.6 MMOL/L (3.5-5.1); SODIUM 141 MMOL/L (135-145); TOTAL CARBON DIOXIDE 27.8 MMOL/L (24-32); TOTAL PROTEIN 7.3 G/DL (6.4-8.2); eCRCL 39 ML/MIN; eGFR 48 ML/MIN
[2024-06-02 21:19] LABS: BILIRUBIN,URINE NEGATIVE (Neg); CLARITY,URINE SLIGHTLY CLOUDY (Clear); COLOR,URINE YELLOW (Yellow); GLUCOSE, URINE NEGATIVE (Neg); KETONES,URINE NEGATIVE (Neg); LEUKOCYTE ESTERASE ,URINE NEGATIVE (Neg); NITRITES, URINE NEGATIVE (Neg); OCCULT BLOOD,URINE LARGE (Neg); PROTEIN,URINE NEGATIVE (Neg); UROBILINOGEN,URINE 0.2 E.U/dL (0.2-1.0)
[2024-06-02 21:27] LABS: UA COLLECTION TYPE CLN CATCH MIDSTREAM
[2024-06-02 21:28] LABS: BACTERIA,URINE FEW /HPF (Neg); RBC,URINE 20-50 /HPF (0-2); SQUAMOUS EPITHELIAL CELL,UR FEW /LPF (FEW); WBC,URINE 0-4 /HPF (0-4)
[2024-06-02] MEDS: morphine 4 MG/ML inj SYRINge IV STA (22:42)
[2024-06-03] MEDS: normal saline 1000ml 1,000 ML IV STA (01:08)
[2024-06-03] MEDS: ondansetron/PF 4mg/2ml inj IV STA (01:08)
[2024-06-03] MEDS: tamsulosin 0.4mg capsule PO STA (01:09)
[2024-06-03] MEDS: morphine 2 MG/ML inj. syringe IV STA (01:09)
[2024-06-03] MEDS ORDERED: FLO0.4C PO (01:20)
[2024-06-03] MEDS ORDERED: PER5325T PO (01:20)
[2024-06-03 02:15] VITALS: BP 149/89; PULSE 78; RESP 18; O2SAT 98
== END 2024-06-03 02:18 | disposition home or self-care (01) ==
LOC: ER 19:45
DX: N20.0 Calculus of kidney (principal); N13.30 Unspecified hydronephrosis; I10 Essential (primary) hypertension; I48.91 Unspecified atrial fibrillation; J45.909 Unspecified asthma, uncomplicated; Z88.0 Allergy status to penicillin; Z88.1 Allergy status to other antibiotic agents; Z79.82 Long term (current) use of aspirin
CPT/HCPCS: 36415; 74176; 80053; 81001; 83690; 85025; 96361; 96374; 96375; 99285; J2270; J2405; J7030